=== PATIENT | female | born 1975 | race Asian ===

== ENCOUNTER 2022-07-30 18:07 | Emergency (ER) | payer BC ==
[~2022-07-30] VITALS: Ht 162.6 cm; Wt 77.1 kg
[2022-07-30] MEDS ORDERED: HYDROCODONE/APAP 5/325MG TABLET ONE (18:58)
[2022-07-30] MEDS ORDERED: HYDROCODONE/APAP 5/325MG TABLET PO ONE (19:00)
[2022-07-30] MEDS ORDERED: ACETAMINOPHEN 325 MG TABLET PO ONE (19:30)
[2022-07-30] MEDS ORDERED: ACETAMINOPHEN 325 MG TABLET ONE (20:25)
[2022-07-30] MEDS ORDERED: IBUP-1953 PO (20:31)
[2022-07-30] MEDS ORDERED: ACET-868 PO (20:31)
--- NOTE | 2022-07-30 21:40 | NUR ---
Patient discharged to home in stable condition. Written and verbal after care instructions given. Patient verbalizes understanding of instruction. Pt ambulatory with a steady gait
[2022-07-30 21:41] VITALS: BP 107/75
== END 2022-07-30 21:35 | disposition home or self-care (01) ==
LOC: ER 18:10
DX: S02.2XXA Fracture of nasal bones, initial encounter for closed fracture (principal); S05.91XA Unspecified injury of right eye and orbit, initial encounter; E11.9 Type 2 diabetes mellitus without complications; Z90.89 Acquired absence of other organs; W21.03XA Struck by baseball, initial encounter; Y93.64 Activity, baseball; Y92.320 Baseball field as the place of occurrence of the external cause; Y99.8 Other external cause status
CPT/HCPCS: 70486-TC